=== PATIENT | male | born 1965 | race Caucasian/White ===

== ENCOUNTER → 2017-05-28 14:56 | Outpatient (CLI) | payer OTHER, SELFPAY ==
[2017-05-28 17:49] LABS: T4 Free Direct 0.83 ng/dL (0.76-1.46); Thyroid Stim Hormone (TSH) 0.34 uIU/mL (0.358-3.74)
== END ==
PROVIDERS: Family Provider Family Medicine; PCP Family Medicine; Visit Provider Family Medicine
DX: R94.6 Abnormal results of thyroid function studies (principal)
CPT/HCPCS: 36415; 84439; 84443

== ENCOUNTER → 2017-12-03 08:37 | Outpatient (CLI) | payer OTHER, SELFPAY ==
[2017-12-03 12:05] LABS: Absolute Lymphocyte Count 2.25 X10^3/ul (0.83-4.51); Absolute Neutrophil Count 8.5 X10^3/uL (2.0-7.7); Basophil# 0.04 X10^3/uL; Basophil% 0.3 % (0-1); Eosinophil# 0.49 X10^3/uL; Hematocrit 47.1 % (40-54); Hemoglobin 14.9 g/dl (13.0-16.5); Lymphocyte # 2.25 X10^3/ul (4.0); Lymphocyte % 18.5 % (19-41); Mean Corp Hgb Conc 31.6 g/gl (32-36); Mean Corpuscular Hgb 27.9 pg (27.0-32.0); Mean Corpuscular Volume 88.2 fL (80-94); Mean Platelet Vol. 10.5 fl (6.2-12.0); Monocyte# 0.84 X10^3/uL; Monocyte% 6.9 % (0-10); Neutrophil # 8.49 X10^3/uL (2.7-7.7); Neutrophil % 70.1 % (47-70); Platelet Count 325 K/mm3 (150-450); RBC Distribution Width CV 13.9 % (11.6-14.6); RBC Distribution Width SD 44.4 fl (35.1-43.9); Red Blood Count 5.34 M/mm3 (4.6-6.2); White Blood Count 12.1 K/mm3 (4.4-11.0)
[2017-12-03 12:07] LABS: POSITIVE COUNT NO; POSITIVE DIFFERENTIAL NO; POSITIVE MORPHOLOGY NO
[2017-12-03 12:15] LABS: Anion Gap 9 (5-15); BUN 13 mg/dL (7-18); BUN/Creat Ratio 10.1 RATIO (10-20); Calcium,Total 9.2 mg/dL (8.5-10.1); Chloride 107 mmol/L (98-107); Creatinine, Serum 1.29 mg/dL (0.70-1.30); EST Glomerular Filtration Rate 62 mL/min (>60); Est Glom Filt Rate - Afr Amer 75 mL/min (>60); Glucose 92 mg/dL (74-106); Potassium 4.6 mmol/L (3.5-5.1); Sodium Level 138 mmol/L (136-145); T4 Free Direct 0.82 ng/dL (0.76-1.46); Thyroid Stim Hormone (TSH) 0.47 uIU/mL (0.358-3.74)
== END ==
PROVIDERS: Family Provider Family Medicine; PCP Family Medicine; Visit Provider Family Medicine
DX: I10 Essential (primary) hypertension (principal); R94.6 Abnormal results of thyroid function studies
CPT/HCPCS: 36415; 80048; 84439; 84443; 85025

== ENCOUNTER → 2018-06-03 | Outpatient (CLI) | payer OTHER, SELFPAY ==
[2018-06-03 13:04] LABS: Anion Gap 5 (5-15); BUN 13 mg/dL (7-18); BUN/Creat Ratio 9.8 RATIO (10-20); Calcium,Total 9.5 mg/dL (8.5-10.1); Chloride 107 mmol/L (98-107); Creatinine, Serum 1.33 mg/dL (0.70-1.30); EST Glomerular Filtration Rate 60 mL/min (>60); Est Glom Filt Rate - Afr Amer 72 mL/min (>60); Glucose 94 mg/dL (74-106); Potassium 4.4 mmol/L (3.5-5.1); Sodium Level 135 mmol/L (136-145); T4 Free Direct 0.82 ng/dL (0.76-1.46); Thyroid Stim Hormone (TSH) 0.35 uIU/mL (0.358-3.74)
== END | disposition home or self-care (01) ==
LOC: BFHLAB 08:37
PROVIDERS: Family Provider Family Medicine; PCP Family Medicine; Visit Provider Family Medicine
DX: I10 Essential (primary) hypertension (principal); R94.6 Abnormal results of thyroid function studies
CPT/HCPCS: 36415; 80048; 84439; 84443

== ENCOUNTER → 2018-11-25 | Outpatient (CLI) | payer OTHER, SELFPAY ==
[2018-11-25 12:27] LABS: Absolute Lymphocyte Count 1.84 X10^3/uL (0.83-4.51); Absolute Neutrophil Count 9.6 X10^3/uL (2.0-7.7); Basophil# 0.07 X10^3/uL; Basophil% 0.5 % (0-1); Eosinophil# 0.31 X10^3/uL; Eosinophils% 2.4 % (0-5); Hematocrit 48.7 % (40-54); Hemoglobin 15.2 g/dL (13.0-16.5); Lymphocyte # 1.84 X10^3/ul (4.0); Lymphocyte % 14.4 % (19-41); Mean Corp Hgb Conc 31.2 g/dL (32-36); Mean Corpuscular Hgb 27.9 pg (27.0-32.0); Mean Corpuscular Volume 89.5 fL (80-94); Mean Platelet Vol. 10.6 fl (6.2-12.0); Monocyte# 0.84 X10^3/uL; Monocyte% 6.6 % (0-10); NRBC Flagged by Analyzer 0 % (0-5); Neutrophil # 9.64 X10^3/uL (2.7-7.7); Neutrophil % 75.6 % (47-70); Platelet Count 316 K/mm3 (150-450); RBC Distribution Width CV 13.4 % (11.6-14.6); RBC Distribution Width SD 44.2 fl (35.1-43.9); Red Blood Count 5.44 M/mm3 (4.6-6.2); White Blood Count 12.8 K/mm3 (4.4-11.0)
[2018-11-25 13:02] LABS: Hemoglobin A1c 5.6 % (4.2-6.3)
[2018-11-25 13:08] LABS: BUN 14 mg/dL (7-18); Creatinine, Serum 1.31 mg/dL (0.70-1.30); Glucose 95 mg/dL (74-106)
[2018-11-25 13:09] LABS: ALB/GLOB Ratio 0.9 RATIO (0.9-2.4); AST(SGOT) 23 U/L (15-37); Alanine Aminotransfer ALT/SGPT 46 U/L (16-61); Albumin, Serum 3.7 g/dL (3.2-5.0); Alkaline Phosphatase 73 U/L (45-117); Anion Gap 6 (5-15); BUN/Creat Ratio 10.7 RATIO (10-20); Calcium,Total 9.3 mg/dL (8.5-10.1); Chloride 106 mmol/L (98-107); EST Glomerular Filtration Rate 61 mL/min (>60); Est Glom Filt Rate - Afr Amer 74 mL/min (>60); Globulin 4.2 g/dL (2.2-4.2); Potassium 4.6 mmol/L (3.5-5.1); Protein, Total 7.9 g/dL (6.4-8.2); Sodium Level 136 mmol/L (136-145); Thyroid Stim Hormone (TSH) 0.29 uIU/mL (0.358-3.74)
== END | disposition home or self-care (01) ==
LOC: BFHLAB 08:36
PROVIDERS: Family Provider Family Medicine; PCP Family Medicine; Visit Provider Family Medicine
DX: R94.6 Abnormal results of thyroid function studies (principal); I10 Essential (primary) hypertension; E78.5 Hyperlipidemia, unspecified; R73.01 Impaired fasting glucose
CPT/HCPCS: 36415; 80053; 83036; 84439; 84443; 85025

== ENCOUNTER → 2018-12-31 | Outpatient (CLI) | payer OTHER, SELFPAY ==
[2017-02-23 07:29] VITALS: BMI 36.3
--- NOTE | 2018-12-31 08:09 | US_ITS ---
STUDY: THYROID ULTRASOUND REASON FOR EXAM: Male, 53 years old. Follow up for thyroid nodules. TECHNIQUE: Ultrasound evaluation of the thyroid was performed with real-time and static sánchez-scale imaging. COMPARISON: None. FINDINGS: RIGHT LOBE: The right lobe of the thyroid gland is enlarged and measures 5.4 cm x 2.8 cm x 2.9 cm. There is a heterogeneous echotexture. There are no demonstrated solid, cystic or complex lesions. LEFT LOBE: The left lobe of the thyroid gland is enlarged and measures 5.4 cm x 2.3 centimeters x 2.8 cm. There is a heterogeneous echotexture. There is an 8mm by 8mm by 5 mm hypoechoic solid nodule in the lower pole of the left lobe. ISTHMUS: The isthmus measures 9.0 mm. The regional lymph nodes are normal. US/Thyroid IMPRESSION: Thyromegaly. 8mm by 8mm by 5 mm hypoechoic solid nodule in the lower pole of the left lobe of the thyroid. Electronically Signed: Kvng Hardy, at 14:42 EST , Service support ,
== END | disposition home or self-care (01) ==
PROVIDERS: Family Provider Family Medicine; PCP Family Medicine; Referring Provider Family Medicine; Visit Provider Family Medicine
DX: E04.1 Nontoxic single thyroid nodule (principal)
CPT/HCPCS: 76536

== ENCOUNTER → 2019-11-05 10:36 | Outpatient (CLI) | payer OTHER, SELFPAY ==
[2017-02-23 07:29] VITALS: BMI 36.3
[2019-11-05 12:42] LABS: Absolute Lymphocyte Count 1.69 X10^3/uL (0.83-4.51); Absolute Neutrophil Count 9.7 X10^3/uL (2.0-7.7); Basophil# 0.06 X10^3/uL; Basophil% 0.5 % (0-1); Eosinophil# 0.17 X10^3/uL; Eosinophils% 1.4 % (0-5); Hematocrit 46.8 % (40-54); Hemoglobin 14.8 g/dL (13.0-16.5); Lymphocyte # 1.69 X10^3/ul (4.0); Lymphocyte % 13.5 % (19-41); Mean Corp Hgb Conc 31.6 g/dL (32-36); Mean Corpuscular Hgb 28.2 pg (27.0-32.0); Mean Corpuscular Volume 89.3 fL (80-94); Mean Platelet Vol. 11.2 fl (6.2-12.0); Monocyte# 0.82 X10^3/uL; Monocyte% 6.5 % (0-10); NRBC Flagged by Analyzer 0 % (0-5); Neutrophil # 9.72 X10^3/uL (2.7-7.7); Neutrophil % 77.6 % (47-70); Platelet Count 285 K/mm3 (150-450); RBC Distribution Width CV 13.6 % (11.6-14.6); RBC Distribution Width SD 44.2 fl (35.1-43.9); Red Blood Count 5.24 M/mm3 (4.6-6.2); White Blood Count 12.5 K/mm3 (4.4-11.0)
[2019-11-05 12:54] LABS: ALB/GLOB Ratio 0.9 RATIO (0.9-2.4); AST(SGOT) 20 U/L (15-37); Alanine Aminotransfer ALT/SGPT 38 U/L (16-61); Albumin, Serum 3.7 g/dL (3.2-5.0); Alkaline Phosphatase 69 U/L (45-117); Anion Gap 6 (5-15); BUN 13 mg/dL (7-18); BUN/Creat Ratio 11.1 RATIO (10-20); Calcium,Total 9.3 mg/dL (8.5-10.1); Chloride 106 mmol/L (98-107); Creatinine, Serum 1.17 mg/dL (0.70-1.30); EST Glomerular Filtration Rate 69 mL/min (>60); Est Glom Filt Rate - Afr Amer 83 mL/min (>60); Globulin 4.1 g/dL (2.2-4.2); Glucose 93 mg/dL (74-106); Potassium 4.1 mmol/L (3.5-5.1); Protein, Total 7.8 g/dL (6.4-8.2); Sodium Level 136 mmol/L (136-145); T4 Free Direct 0.95 ng/dL (0.76-1.46); Thyroid Stim Hormone (TSH) 0.29 uIU/mL (0.358-3.74)
== END ==
PROVIDERS: Family Provider Family Medicine; PCP Family Medicine; Visit Provider Family Medicine
DX: R94.6 Abnormal results of thyroid function studies (principal); D72.829 Elevated white blood cell count, unspecified; I10 Essential (primary) hypertension; E78.5 Hyperlipidemia, unspecified
CPT/HCPCS: 36415; 80053; 84439; 84443; 85025

== ENCOUNTER → 2019-11-10 09:50 | Outpatient (CLI) | payer OTHER, SELFPAY ==
--- NOTE | 2019-11-10 09:53 | US_ITS ---
HISTORY: NODULE COMPARISON: 12/31/2018 TECHNIQUE: Grayscale and color Doppler sonography of the thyroid gland. FINDINGS: RIGHT LOBE: 5.9 x 2.7 x 2.8 cm LEFT LOBE: 5.8 x 2.5 x 2.2 cm ISTHMUS: 8 mm Heterogeneous echogenicity. Normal vascularity. Left thyroid lobe nodule measuring 8 x 5 x 7 mm, smoothly marginated without calcification, and moderate mental. It is heterogeneous with some hypoechoic and isoechoic components. TIRADS 4. Stable compared to 2019. 7 x 8 x 6 mm left thyroid lobe cyst. US/Thyroid IMPRESSION: 1. Enlarged, heterogeneous thyroid. 2. Stable small left thyroid lobe nodule. TIRADS 4. Continued follow-up recommended, with suggested follow-up intervals of 1 year, 2 years and 4 years. at 0236 Reported and signed by: Nadja Lyles MD Electronically Signed: Nadja Lyles MD at 2:36 EDT Tel , Service support ,
== END ==
PROVIDERS: PCP Family Medicine; Referring Provider Family Medicine; Visit Provider Family Medicine
DX: E04.1 Nontoxic single thyroid nodule (principal)
CPT/HCPCS: 76536

== ENCOUNTER 2020-03-05 06:12 | Day surgery (SDC) | payer OTHER, SELFPAY ==
[2020-03-05] VITALS (7 sets, daily range): BP systolic 92–126; BP diastolic 49–74; PULSE 70–85; RESP 14–16; TEMP 36.2–36.8; O2SAT 93–96; BMI 36.5
[2020-03-05] MEDS: Lactated Ringers 1,000 ML 100 ML IV (06:49)
--- NOTE | 2020-03-05 06:59 | HP.PCM_ITS ---
History of Present Illness Date of Admission: 03/05/20 The patient is a 54 year old M here for surveillance colonoscopy. The patient has last colonoscopy in 2017 and a large adenomatous polyp was encountered. Patient was recommended to come back in 3 years. He has no abdominal pain or blood in stool. He has no family history of colon cancer. Past Medical/Surgical History - Planned Operation Planned Operative Procedure/s: COLONOSCOPY Date of Operative Procedure: 03/05/20 Permit Signed: No S.O.S: No Is This Patient Having a Total Joint: No - Previous Hospitalizations/Surgeries HX Hospitalizations: No HX of Surgeries: Colonoscopy Any Problems With Anesthesia: No You/Your Family Experience Fever (Hyperthermia) With Anes: No Cholinesterase deficiency: No - Cardiovascular Hx Chest Pain within Last 2 months: No Hx of Irregular Heartbeat and/or Afib: No Hx Heart Attack: No Hx Congestive Heart Failure: No Hx Rheumatic Fever: No Hx Hypertension: Yes - on meds Hx Internal Defibrillator: No Hx Pacemaker: No Hx Cardiac Catheterization: No Hx Cardiac Surgery/Stents/Etc.: No Hx Stress Test: No HX Edema: No Hx Pain in Legs when Walking/Leg Cramps: No - Respiratory Chronic Cough: No HX of Shortness of Breath: No Hoarseness: No Hx Chronic Obstructive Pulmonary Disease (COPD): No Hx Asthma: No Hx Emphysema: No Hx Sleep Apnea: No CPAP: No Hx Oxygen Use at Home: No Hx Respiratory Tract Infection/Cold (presently): No Do You Snore Loudly (louder than talking or can be heard): No Do You Often Feel Tired/ Fatigued/ Sleepy Dring Daytime?: No Has Anyone Observed You Stop Breathing During Sleep?: No Result (for STOP score): Negative Hx Smoking: No Smoking Status: Former smoker - Gastrointestinal Hx Gastroesophageal Reflux: No Hx Gastrointestinal Disorders: No Hx Gastrointestinal Bleed: No Hx Ulcer: No Hx Hiatal Hernia: No Difficulty Chewing/Swallowing: No Recent Onset of Swallowing Problems: No Special diet followed at home: No Hx Unplanned Weight Loss of 20#: No HX Unplanned Weight Gain of 20#: No - Neurological Hx Seizures: No HX Syncope/Blackout Spells/Unconsciousness: No Hx CVA/Stroke: No Hx Transient Ischemic Attacks (TIA): No Hx Multiple Sclerosis: No Hx Parkinson's Disease: No Hx Head/Neck Injury: No Hx Headaches: No Hx Back Injury/Pain: No Recent Onset of Speech Difficulty: No Restless Legs: No Does patient have nerve stimulator: No Patient instructed to have device shut off: No Rep notified?: No - Blood Disorder Hx Leukemia: No Bleeding Tendencies: No Hx Deep Vein Thrombosis: No Hx High Cholesterol: Yes - on meds Blood Transmitted Disease: No Hx Hepatitis: No Hx Cirrhosis: No Hx Anemia: No Hx Blood Disorders: No - Genitourinary Hx Renal Disease: No - Musculoskeletal Hx Arthritis: No Hx Rheumatoid Arthritis: No Hx Gout: No Recent Onset of an Orthopedic Problem: No - Endocrine Hx Diabetes: No Thyroid Disease: No Hx Steroid Therapy: No - Psycho/Social Hx Substance Use: No Hx Alcohol Use: No Hx Anxiety: No Hx Depression: No Mental Illness: No Hx Dementia: No - Miscellaneous Hx Cancer: No Recent Exposure to Contagious Disease: No Hx of C-Diff: No Any Loose Teeth: No - upper denture Allergies No Known Allergies Allergy (Verified 02/24/20 13:43) - Discharge Is Pt Admitted From a Usp, or a Senior Care: No After D/C, Where Do you Plan to Go: Return Home - Physical Exam Vitals/I&O's: Vital Signs Temp Pulse Resp BP Pulse Ox 98.3 F 85 14 126/74 H 95 03/05/20 06:35 03/05/20 06:35 03/05/20 06:35 03/05/20 06:35 03/05/20 06:35 Oxygen Delivery Method Room Air Weight: 240 lb 4.862 oz Body Mass Index (BMI) 36.5 General: Alert, Oriented x3 Neck: No JVD Lungs: Normal air movement Cardiovascular: Regular rate, Regular Rhythm Abdomen: Soft, Non Tender, Non-Distended Current Medications Lactated Ringer's () 1,000 mls @ 100 mls/hr IV .Q10H LAINEY Last Admin: 03/05/20 06:49 Dose: 100 mls/hr Documented by: Assessment/Plan All Active Problems (Last Reviewed 01/29/17 @ 09:[address] Celestine Lyons MD) Tubulovillous adenoma of large intestine (Acute) Screen for colon cancer (Acute) 54-year-old male with history of adenomatous polyps I explained endoscopy in detail to the patient. I explained the risks including but not limited to stroke or heart attack with anesthesia, perforation of the GI tract, bleeding, infection. I explained that any of these could necessitate further emergency surgery. The patient understands and all questions were answered sufficiently. The patient wishes to proceed with procedure. We discussed the current risks associated with COVID-19. While it is understood that there is a community spread of COVID-19, the risk of andrae COVID-19 while at [facility] ([facility]) is very low; however, the risk cannot be completely mitigated because of the community spread of the disease. We discussed in detail the risk of exposure to and/or potential harm posed by the COVID-19 virus with having a surgery/procedure at this time versus the risk of delaying the surgery/procedure. It is not possible to know either the risk of delaying the surgery or procedure or chance of getting an infection with perfect accuracy, but a joint decision was made to proceed at this time with the scheduled surgery/procedure as indicated on the consent form. Patient was notified that we will need to comply with any screening or testing [facility] wishes to perform or that surgery may be delayed for any positive results. Celestine Lyons MD Pager: [facility] [address] [place] [address], [address] [place] [address] Office: Surgery Risks - Colonoscopy Risks Include but are not Limited To: Risks include but are not limited to: Bleeding, perforation requiring further surgery, inability to complete colonoscopy requiring barium enema.
--- NOTE | 2020-03-05 07:30 | COLBX_PTH ---
PATIENT: JOCELYNE GONSALES LOC: EN U#:[id number] AGE/SX: 54/M ROOM: RE03/05/[address]: Dr. Celestine Lyons MD : 1965 BED: DIS: 03/05/2020 SPEC #: [id number] RECD: 03/05/20 11:33 STATUS: JEREMY HUBERT #: [id number] VERONICA: 03/05/20 07:[address]: Celestine Lyons DEPT: SURGICAL PATHOLOGY RECD BY: Jade Joshua ENTERED: 03/05/20 12:23 SP TYPE: COLON BX OTHR DR: Dr. Darryl Ramirez MD Tissues: Descending colon Procedures: Surgery Specimen Level IV HEADER OPERATION: Colonoscopy - open access (MAC) PRE-OP DIAGNOSIS: Screening TISSUE SUBMITTED: Descending colon polyp MICROSCOPIC DIAGNOSIS Descending colon polyp, biopsy: Tubular adenoma. AM:teagan 03/08/2020 MICROSCOPIC DESCRIPTION Slides are reviewed. GROSS DESCRIPTION Received in fixative is one container labeled with the patient's name and designated descending colon polyp. The specimen consists of one irregular fragment of light carmona soft tissue that measures 0.6 x 0.5 x 0.1 cm. The specimen is totally submitted in one cassette. / AM:teagan 03/05/2020 TC:5 CPT: 94309
--- NOTE | 2020-03-05 07:54 | OP.COLON_ITS ---
Patient Name: Saqib Sherman Procedure Date: 03/05/2020 7:25 AM Date of : 1965 Age: 54 Procedure: Colonoscopy Indications: High risk colon cancer surveillance: Personal history of adenoma (10 mm or greater in size) Providers: Celestine Lyons MD Referring MD: Celestine Lyons MD Medicines: Monitored Anesthesia Care Patient Profile: This is a 54 year old male. Refer to note in patient chart for documentation of history and physical. Last Colonoscopy: 3 years ago. Complications: No immediate complications. Procedure: Pre-Anesthesia Assessment: - Prior to the procedure, a History and Physical was performed, and patient medications and allergies were reviewed. The patient's tolerance of previous anesthesia was also reviewed. The risks and benefits of the procedure and the sedation options and risks were discussed with the patient. All questions were answered, and informed consent was obtained. Prior Anticoagulants: The patient has taken no previous anticoagulant or antiplatelet agents. After reviewing the risks and benefits, the patient was deemed in satisfactory condition to undergo the procedure. After I obtained informed consent, the scope was passed under direct vision. Throughout the procedure, the patient's blood pressure, pulse, and oxygen saturations were monitored continuously. The Colonoscope was introduced through the anus and advanced to the cecum, identified by appendiceal orifice and ileocecal valve. The colonoscopy was performed without difficulty. The patient tolerated the procedure well. The quality of the bowel preparation was good. Scope In: 7:35:07 AM Scope Withdrawal Time 0 hours 6 minutes 14 seconds Scope Out: 7:43:22 AM Total Procedure Duration Time 0 hours 8 minutes 15 seconds Findings: A polyp was found in the distal descending colon. The polyp was removed with a hot snare. Resection and retrieval were complete. The exam was otherwise without abnormality on direct and retroflexion views. Impression: - One polyp in the distal descending colon, removed with a hot snare. Resected and retrieved. - The examination was otherwise normal on direct and retroflexion views. Recommendation: - Discharge patient to home. - Resume previous diet. - Continue present medications. - Await pathology results. - Repeat colonoscopy in 5 years for surveillance. Procedure Code(s): --- Professional --- 02446, Colonoscopy, flexible; with removal of tumor(s), polyp(s), or other lesion(s) by snare technique Diagnosis Code(s): --- Professional --- Z86.010, Personal history of colonic polyps D12.4, Benign neoplasm of descending colon CPT copyright 2017 [employer]. All rights reserved. The codes documented in this report are preliminary and upon blood tester review may be revised to meet current compliance requirements. Celestine Lyons MD 03/05/2020 7:54:15 AM This report has been signed electronically. Number of Addenda: 0 Note Initiated On: 03/05/2020 7:25 AM
--- NOTE | 2020-03-05 07:55 | OP.CCLET_ITS ---
03/05/2020 Darryl Ramirez Re : Colonoscopy procedure for Saqib Sherman Dear James This procedure was performed on Thursday, March 05, 2020. My impressions and recommendations are as follows: Impressions : - One polyp in the distal descending colon, removed with a hot snare. Resected and retrieved. - The examination was otherwise normal on direct and retroflexion views. Recommendations : - Discharge patient to home. - Resume previous diet. - Continue present medications. - Await pathology results. - Repeat colonoscopy in 5 years for surveillance. My findings are described in the full procedure note, which is enclosed. If I can be of further assistance, please feel free to contact me at Doctor phone number(s): , Work: . Sincerely, Celestine Lyons MD 03/05/2020 7:54:15 AM This report has been signed electronically.
== END 2020-03-05 08:25 | disposition home or self-care (01) ==
LOC: EN 06:13 → AC 06:14
PROVIDERS: PCP Family Medicine; Referring Provider Surgery; Visit Provider Surgery
PROC: 0DJD8ZZ Inspection of Lower Intestinal Tract, Via Natural or Artificial Opening Endoscopic (ICD-10-PCS; CPT 45378; principal; 2020-03-05 07:25)
DX: Z12.11 Encounter for screening for malignant neoplasm of colon (principal); Z20.828 Contact with and (suspected) exposure to other viral communicable diseases; I10 Essential (primary) hypertension; D12.4 Benign neoplasm of descending colon; Z86.010 Personal history of colon polyps
CPT/HCPCS: 45385; 87426; 88305; C9803; J7120; J2405

== ENCOUNTER → 2020-11-03 07:17 | Outpatient (CLI) | payer OTHER, SELFPAY ==
--- NOTE | 2020-11-03 07:24 | US_ITS ---
STUDY: THYROID ULTRASOUND REASON FOR EXAM: Male, 55 years old. F/U NODULES TECHNIQUE: Ultrasound evaluation of the thyroid was performed with real-time and static sánchez-scale imaging. COMPARISON: 11/10/2019 FINDINGS: RIGHT LOBE: The right lobe of the thyroid gland measures 6.2 x 3.3 x 2.8 cm. There is a heterogeneous echotexture. There are no demonstrated solid, cystic or complex lesions. LEFT LOBE: The left lobe of the thyroid gland measures 6.0 x 2.8 x 2.2 cm. There is a heterogeneous echotexture. 0.8 x 1.0 x 0.6 cm nodule solid nodule with regular margins. 0.9 x 0.6 x 0.5 cm nodule predominantly cystic nodule with regular margins. 0.7 x 0.6 x 0.5 cm nodule mixed cystic and solid nodule with regular margins. 0.5 x 0.5 x 0.4 cm nodule predominantly cystic nodule with regular margins. Symmetric right and left lobe DOPPLER flow. ISTHMUS: The isthmus measures 6 mm. US/Thyroid IMPRESSION: Several left-sided nodules, largest measuring up to 1 cm in size, not significantly changed compared to 11/10/2019. Electronically Signed: Kennedy Cordon MD at 22:59 EDT Tel , Service support ,
== END ==
PROVIDERS: PCP Family Medicine; Referring Provider Family Medicine; Visit Provider Family Medicine
DX: E04.1 Nontoxic single thyroid nodule (principal)
CPT/HCPCS: 76536

== ENCOUNTER 2021-05-23 07:15 | Outpatient (CLI) | payer OTHER, SELFPAY ==
--- NOTE | 2021-05-23 07:26 | US_ITS ---
STUDY: THYROID ULTRASOUND REASON FOR EXAM: Male, 55 years old. Thyroid nodule TECHNIQUE: Ultrasound evaluation of the thyroid was performed with real-time and static sánchez-scale imaging. COMPARISON: 11/03/2020 and 11/10/2019 and 12/31/2018 FINDINGS: RIGHT LOBE: The right lobe of the thyroid gland measures 6.2 x 3.1 x 3.6 cm. There is a heterogeneous echotexture. There are no demonstrated solid, cystic or complex lesions. LEFT LOBE: The left lobe of the thyroid gland measures 6 x 2.9 x 3.0 cm. There is a homogeneous echotexture. There are multiple nodules in the left thyroid lobe the largest 2 measure respectively: Nodule #1 measures 8 x 11 x 7 mm .Ti-RADS category 2 benign lesion. Nodule #2 measures 8 x 9 x 6 mm Ti-RADS category 2 benign lesion. . ISTHMUS: The isthmus measures 9 mm . The regional lymph nodes are normal in size. US/Thyroid IMPRESSION: Enlarged heterogeneous thyroid gland consistent with chronic thyroiditis. Benign nodules in the left thyroid lobe have not significantly changed since the previous study. Electronically Signed: Anshu Benton MD at 4:26 EDT ,
== END 2021-05-23 23:59 | disposition home or self-care (01) ==
PROVIDERS: PCP Family Medicine; Referring Provider Family Medicine; Visit Provider Family Medicine
DX: E04.1 Nontoxic single thyroid nodule (principal)
CPT/HCPCS: 76536

== ENCOUNTER → 2022-10-02 | Outpatient (CLI) | payer OTHER, SELFPAY ==
[2022-10-02 12:14] LABS: Absolute Lymphocyte Count 1.94 X10^3/uL (0.83-4.51); Absolute Neutrophil Count 8.2 X10^3/uL (2.0-7.7); Basophil# 0.08 X10^3/uL; Basophil% 0.7 % (0-1); Eosinophil# 0.28 X10^3/uL; Eosinophils% 2.5 % (0-5); Hematocrit 48.5 % (40-54); Lymphocyte # 1.94 X10^3/ul (0.83-4.51); Lymphocyte % 17.1 % (19-41); Mean Corp Hgb Conc 30.9 g/dL (32-36); Mean Corpuscular Hgb 28.4 pg (27.0-32.0); Mean Corpuscular Volume 91.7 fL (80-94); Mean Platelet Vol. 10.5 fl (6.2-12.0); Monocyte# 0.83 X10^3/uL; Monocyte% 7.3 % (0-10); NRBC Flagged by Analyzer 0 % (0-5); Neutrophil # 8.18 X10^3/uL (2.7-7.7); Platelet Count 349 K/mm3 (150-450); RBC Distribution Width CV 13.7 % (11.6-14.6); RBC Distribution Width SD 46.5 fl (35.1-43.9); Red Blood Count 5.29 M/mm3 (4.6-6.2); White Blood Count 11.4 K/mm3 (4.4-11.0)
[2022-10-02 12:18] LABS: Color, Urine Yellow (Yellow); Glucose, Dipstick Normal (Normal); Ketone-Dipstick Negative (Negative); Leukocyte Esterase-Dipstick Negative /ul (Negative); Nitrite-Dipstick Negative (Negative); Occult Blood-Urine 10 /ul (Negative); Protein-Dipstick 15 mg/dl (Negative); Urine Bilirubin Dipstick Negative (Negative); Urine Clarity Clear (Clear); Urine Urobilinogen Normal (Normal)
[2022-10-02 13:02] LABS: ALB/GLOB Ratio 0.9 RATIO (0.9-2.4); AST(SGOT) 19 U/L (15-37); Alanine Aminotransfer ALT/SGPT 37 U/L (16-61); Albumin, Serum 3.5 g/dL (3.2-5.0); Alkaline Phosphatase 68 U/L (45-117); Anion Gap 4 (5-15); BUN 12 mg/dL (7-18); BUN/Creat Ratio 10.3 RATIO (10-20); Calcium,Total 9.4 mg/dL (8.5-10.1); Chloride 108 mmol/L (98-107); Cholesterol 164 mg/dL (200); Creatinine, Serum 1.17 mg/dL (0.70-1.30); EST Glomerular Filtration Rate 68 mL/min (>60); Est Glom Filt Rate - Afr Amer 83 mL/min (>60); Globulin 4.1 g/dL (2.2-4.2); Glucose 102 mg/dL (74-106); High Density Lipoprotein 40 mg/dL; Potassium 4.3 mmol/L (3.5-5.1); Protein, Total 7.6 g/dL (6.4-8.2); Sodium Level 138 mmol/L (136-145); T4 Free Direct 0.94 ng/dL (0.76-1.46); Triglycerides 118 mg/dL; Very Low Density Lipoprotein 24 mg/dL (5-40)
[2022-10-02 13:04] LABS: Hemoglobin A1c 5.7 % (3.8-5.6)
== END | disposition home or self-care (01) ==
LOC: BFHLAB 09:25
PROVIDERS: PCP Family Medicine; Referring Provider Family Medicine; Visit Provider Family Medicine
DX: Z00.00 Encounter for general adult medical examination without abnormal findings (principal); R73.01 Impaired fasting glucose; E06.9 Thyroiditis, unspecified
CPT/HCPCS: 36415; 80053; 80061; 81002; 83036; 84439; 84443; 85025

== ENCOUNTER → 2024-09-19 | Outpatient (CLI) | payer OTHER, SELFPAY ==
[2024-09-19 12:36] LABS: Hematocrit 46.1 % (40-54); Hemoglobin 14.6 g/dL (13.0-16.5); Immature Granulocytes Count 0.040 X10^3/uL (0.0-0.0); Mean Corp Hgb Conc 31.7 g/dL (32-36); Mean Corpuscular Volume 88.1 fL (80-94); Mean Platelet Vol. 10.7 fl (6.2-12.0); NRBC Flagged by Analyzer 0 % (0-5); Platelet Count 320 K/mm3 (150-450); RBC Distribution Width CV 14.0 % (11.6-14.6); RBC Distribution Width SD 44.5 fl (35.1-43.9); Red Blood Count 5.23 M/mm3 (4.6-6.2); White Blood Count 9.3 K/mm3 (4.4-11.0)
[2024-09-19 13:31] LABS: AST(SGOT) 22 U/L (<=37); Alanine Aminotransfer ALT/SGPT 31 U/L (<=46); Albumin, Serum 4.0 g/dL (3.5-5.0); Alkaline Phosphatase 71 U/L (40-129); Anion Gap 12 (5-15); BUN 12 mg/dL (4-19); BUN/Creat Ratio 9.8 RATIO (10-20); Calcium,Total 9.7 mg/dL (7.6-11.0); Carbon Dioxide 21.6 mmol/L (21.0-32.0); Chloride 104 mmol/L (98-108); Cholesterol 170 mg/dL (<=200); Globulin 3.3 g/dL (2.2-4.2); Glucose 102 mg/dL (70-99); Low Density Lipoprotein Calc. 109 mg/dL; Potassium 4.2 mmol/L (3.3-5.1); Triglycerides 96 mg/dL; Very Low Density Lipoprotein 19 mg/dL (5-40); cholesterol:hdl ratio screen 4.06
[2024-09-19 13:58] LABS: PSA,Total - Annual Screen 2.84 ng/mL (0.02-4.00)
== END | disposition home or self-care (01) ==
PROVIDERS: PCP Family Medicine; Visit Provider Family Medicine
DX: Z00.00 Encounter for general adult medical examination without abnormal findings (principal); Z12.5 Encounter for screening for malignant neoplasm of prostate; R73.01 Impaired fasting glucose; R94.6 Abnormal results of thyroid function studies
CPT/HCPCS: 36415; 80053; 80061; 83036; 84153; 84439; 84443; 85025; G0103

== ENCOUNTER → 2024-10-02 | Outpatient (CLI) | payer OTHER, SELFPAY ==
--- NOTE | 2024-10-02 12:02 | US_ITS ---
PROCEDURE: THYROID 10/02/2024 REASON FOR EXAM: THYROMEGALY NODULES TECHNIQUE: THYROID COMPARISON: May 15, 2021, November 03, 2020 FINDINGS: Right thyroid lobe size: 5.6 x 2.4 x 3.1 cm Left thyroid lobe size: 6.2 x 2.8 x 2.9 cm Isthmus: 0.7 cm Background parenchymal echotexture is heterogeneous. Nodules: 1. Lobe: Left, Location: Midpole, Size: 0.9 cm, Stability: Stable Composition: Solid or almost completely solid (+2) Echogenicity: Hyper to Isoechoic (+1) Margin: Smooth (+0) Shape: Wider than tall (+0) Echogenic Foci: None (+0) TI-RADS: 3 2. Lobe: Left, Location: Posterior lower pole, Size: 1.5 cm, Stability: Unchanged when measured similarly (on prior image 53 and image 49 of November 03 exam). Composition: Solid or almost completely solid (+2) Echogenicity: Hypoechoic (+2) Margin: Ill-defined (+0) Shape: Wider than tall (+0) Echogenic Foci: None (+0) TI-RADS: 4 Incidental note is made of a left midpole colloid cyst measuring 5 mm. Benign. US/Thyroid IMPRESSION: 1. Thyroid enlargement. 2. Benign colloid cyst. 3. Solid nodules as above are stable. TR4: Moderately Suspicious: FNA if = 1. 5 cm; Follow if = 1 cm at 1, 2, 3, and 5 y. Consider sampling the 15 mm left thyroid nodule. Reading Location: [id number]
== END | disposition home or self-care (01) ==
PROVIDERS: PCP Family Medicine; Referring Provider Family Medicine; Visit Provider Family Medicine
DX: E04.9 Nontoxic goiter, unspecified (principal)
CPT/HCPCS: 76536

== ENCOUNTER 2024-11-05 12:44 | Outpatient (CLI) | payer OTHER, SELFPAY ==
--- NOTE | 2024-11-05 12:48 | US_ITS ---
PROCEDURE: FNA 1ST BIOPSY W/ US 11/05/2024 REASON FOR EXAM: THYROID NODULE Ultrasound-guided biopsy of a left thyroid nodule performed by the surgeon Dr. Osborne TECHNIQUE: Procedure Code: [id number] Modality: US Procedure: FNA 1ST BIOPSY W/ US COMPARISON: Prior sonogram dated October 07, 2024. FINDINGS: Under direct sonographic guidance, the surgeon performed 5 aspiration biopsy of a 1.7 cm 1.6 cm x 0.8 cm hypoechoic nodule in the right lobe of the thyroid. US/FNA 1st Biopsy w/ US IMPRESSION: Ultrasound-guided thyroid biopsy of a 1.7 cm 1.6 cm 0.8 cm hypoechoic solid nod ule in the right lobe of the thyroid. Reading Location: [id number]
--- NOTE | 2024-11-05 13:30 | CYSPIN_PTH ---
PATIENT: JOCELYNE GONSALES LOC: [facility]#:[id number] AGE/SX: 59/M ROOM: RE11/05/[address]: Dr. Adán Osborne MD : 1965 BED: DIS: 11/05/2024 SPEC #: [id number] RECD: 11/05/24 13:55 STATUS: JEREMY REBelen #: [id number] VERONICA: 11/05/24 13:[address]: Adán Osborne DEPT: CYTOLOGY RECD BY: Scottie Skelton ENTERED: 11/05/24 14:50 SP TYPE: CYSPIN FL OTHR DR: Dr. Parvez Collins DO Tissues: A - Thyroid gland, NOS Procedures: Pap Stain (control) Special Stain Group II Diff Quik Stain (control) Cytospin Fluid Cytology Other HEADER OPERATION: Ultrasound guided left thoracentesis fluid nodule biopsy PRE-OP DIAGNOSIS: Left thyroid nodule TISSUE SUBMITTED: A- Left thyroid nodule DIAGNOSIS CYTOLOGY A. Left thyroid nodule, FNA (cytospin, smear x4): * Atypical cells of undetermined significance (TBS III). * Afirma testing will be submitted. CYTOLOGY STUDY Slides are reviewed. CYTOLOGY GROSS A. Received is 30 ml of [id number] cytolyt particles and 4 smears labeled with the patient's name and and designated per the requisition as Left thyroid nodule. Submitted for cytology and cytospin. 11/05/2024 CPT: 47190 ADDENDUM ADDENDUM ADDENDUM ADDENDUM ADDENDUM ADDENDUM ADDENDUM ADDENDUM ADDENDUM ADDENDUM 12/01/2024 09:47 ADDENDUM 12/01/2024 09:47 ADDENDUM 12/01/2024 09:47 ADDENDUM 12/01/2024 09:47 ADDENDUM 12/01/2024 09:47 AFIRMA RESULTS REPORT - SAMPLE A RESULTS INTERPRETATION: The result of this 1.5 cm [place] III nodule A is Afirma GSC benign, which suggests a low risk of cancer of approximately 4%. Treatment like a cytologically benign nodule may be appropriate, including clinical correlation. Afirma XA is not performed on [facility] Benign nodules. TERT promoter region analysis is not performed on [facility] Benign nodules. Please see complete report in e-chart or EMR
[2024-11-05] MEDS: Lidocaine 2% (20 ml mdv) 20 ML Vial INFILT (13:33)
--- NOTE | 2024-11-05 14:47 | OP.PCM_ITS ---
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 Superficially, the skin was cleaned with a chlorhexidine swab and a wheal of local anesthetic was created by instilling 9 ml 2% lidocaine. Then, under ultrasound guidance, multiple passes were made into the left thyroid nodule starting with a 22-gauge needle. Once an adequate specimen was detected within the hub of the needle, this was handed off the field. 2nd and 3rd passes were also made with 3 cm long 22-gauge needles. Any excess material was placed in our [facility] collection canister and CytoLyt solution. In the name of trying to mitigate her risk for a nondiagnostic specimen, 4th and 5th passes with 2 additional 22-gauge needles were made for both cytopathology and for submission for genomic testing should patient have an atypical cytopathology result. External pressure was applied to the neck to assist with hemostasis. A quick examination was made with ultrasound to exclude any evidence of hematoma formation. Then the surface of the neck was cleaned, dried, and a bandage was applied. Patient was gradually returned to the sitting position and after short period of monitoring was dismissed. Wound care instructions and expectations regarding pathologic processing were discussed prior to dismissal. Complications: None Estimated blood loss: 1 ml Surgical Findings: Deeply and inferiorly located left thyroid nodule Complications Complications: No Admit VTE Documentation VTE Present on Admission: No
--- OUTSIDE RECORDS SUMMARY | 2024-11-05 20:15 | XMS RPT_ITS | CCD ---
Author Organization [facility] Care Team Providers Care Water Quality Specialist Name Role Phone Celestine Lyons MD Unavailable Nguyen Pearl PA-C Unavailable DARRYL RAMIREZ Unavailable Unavailable Dr. Jason Collins DO Primary Care Provider Dr. Jason Collins DO Attending Provider Dr. Jason Collins DO Referring Provider Dr. Adán Osborne MD Attending Provider Jason Collins Primary Care Unavailable Jason Collins Attending Unavailable Jason Collins Primary Care Unavailable Jason Collins Attending Unavailable Jason Collins Referring Unavailable Jason Collins Primary Care Unavailable Adán Osborne Attending Unavailable Adán Osborne Referring Unavailable Jason Collins Primary Care Unavailable Jason Collins Referring Unavailable Adán Osborne Attending Unavailable Medications Current Medications Medication Drug Class(es) Dates Sig (Normalized) Sig (Original) lisinopril 10 mg oral tablet (7 sources) Angiotensin Converting Enzyme Inhibitor Start: 03-08-2015 take 1 tablet by mouth once daily Lisinopril 10 MG tablet Active 10 mg PO DAILY March 08, 2015 1:00am simvastatin 20 mg oral tablet (7 sources) HMG-CoA Reductase Inhibitor Start: 03-08-2015 take 1 tablet by mouth at bedtime Simvastatin 20 MG tablet Active 20 mg PO AT BEDTIME March 08, 2015 1:00am Completed/Discontinued Medications Medication Drug Class(es) Dates Sig (Normalized) Sig (Original) aspirin 81 mg oral tablet (2 sources) Nonsteroidal Anti-inflammatory Drug take 1 tablet by mouth once daily ASPIRIN 81 MG TABS One tablet by mouth daily ASPIRIN [id number] Brendan Escalera Problems Active Problems Problem Classification Problem Date Documented Da te Episodic/Chronic Other and unspecified benign neoplasm (5 sources) Adenoma of large intestine; Translations: [Benign neoplasm of colon, unspecified] 02-23-2017 Episodic Other screening for suspected conditions (not mental disorders or infectious disease) (5 sources) Patient encounter status; Translations: [Encounter for screening for malignant neoplasm of colon] 02-23-2017 Episodic Thyroid disorders (2 sources) Thyroid nodule; Translations: [Nontoxic single thyroid nodule] Onset: 10-09-2024 10-30-2024 Chronic Unclassified (1 source) Unknown / UNK(Unknown) Onset: 01-22-2017 Past or Other Problems Problem Classification Problem Date Documented Da te Episodic/Chronic Gastrointestinal hemorrhage (2 sources) Hemorrhage of rectum and anus; Translations: [Hemorrhage of anus and rectum] Onset: 02-08-2015 02-09-2015 Episodic Other and unspecified benign neoplasm (2 sources) History of polyp of colon; Translations: [Personal history of colonic polyps] Onset: 01-16-2017 01-16-2017 Episodic Results Test Name Value Interpretation Reference Range Facility Surgery Visit Reporton 10-30 Surgery Visit Report [facility] [address] [place] [address] OFFICE VISIT Date of Service: 10/30/24 MR#: [id number] Acct: [id number] Name: SAQIB GONSALES Rep #: [id number] : 1965 Provider: Dr. Adán malik MD Age/Sex: 59/M Location: [facility] Status: Signed Intake Vital Signs 10/30/24 08:01 Height 5 ft 8 in Weight: 263 lb 6 oz BMI 40.0 BP 144/98 H Blood Pressure Location Rt brachial Position Sitting Respiration 18 Pulse 102 H Pulse Source Monitor Temp 97.6 F L Temp Source Temporal Pulse Oximetry (%) 99 Oxygen Delivery Method room air Intake Visit Reasons: THYROID NODULE Chief Complaint: thyroid nodule Is patient in pain?: No Allergies No Known Allergies Allergy (Verified 10/30/24 08:02) Medications ???Medication ???Instructions ???Recorded ???Confirmed ???Type lisinopril 10 mg tablet 10 mg PO DAILY 03/08/15 10/30/24 H istory simvastatin 20 mg tablet 20 mg PO QHS 03/08/15 10/30/24 His tory [facility] Medical History (Updated 10/30/24 @ 09:[address] Adán Osborne MD) Thyroid nodule Hyperlipidemia HTN (hypertension) Surgical History History of tonsillectomy History of arthroscopic knee surgery Family History Mother Breast cancer Grandmother Colon cancer Social History Smoking Status: Former smoker alcohol intake: never substance use type: does not use what type of physical activity do you participate in: none seatbelt use: always HPI HPI HPI: Patient is a 59-year-old male who presents for evaluation of thyroid nodules. They are referred for surgical consultation from Dr. Collins. This was discovered approximately 78 years ago during routine physical exam with patient's primary care provider. He states at 1 point he underwent biopsy of a nodule (patient unsure of which side) approximately [address] Cardozo. He recalls this being a benign result and undergoing periodic surveillance thyroid ultrasounds. They do not experience difficulty with swallowing. They do not complain of a new cough. They do not appreciate new voice changes. They do not have a history of snoring/sleep apnea. Additionally, their weight has been stable and they did not have a history of weight gain/loss. There is no history of recent fatigue. They do not have a history of heat or cold intolerance. Other symptoms include: Pertinent negatives: Denial of palpitation, denial of anxiety, denial of constipation or diarrhea, denial of any unusual swelling. They do not have a family history of thyroid disorders or endocrinopathies. There is no history of prior radiation exposure. Previous work-up has included thyroid ultrasound. This study was performed on 10/02/2024 and showed a right thyroid lobe measuring 5.6 x 2.4 x 3.1 cm. No nodules were identified in the right thyroid lobe. The left thyroid lobe measured 6.2 x 2.8 x 2.9 cm. Within this lobe radiology identified a nodule measuring 0.9 cm in greatest dimension in the mid polar region and rated TI-RADS 3. A second nodule was located in the posterior inferior pole measuring 1.5 cm in greatest dimension and was rated TI-RADS 4. Radiology commented that both nodules appeared stable and further went on to detail that the larger nodule appeared to be visualized on prior study performed November 03, 2020. An FNA has not been performed. Other tests include: TSH: 0.432, free T4: 1.1 (09/19/2024) ROS General General: No weight change, appetite, fatigue, colon cancer, breast cancer or weakness HEENT HEENT: No difficulty swallowing, eye injury, eye surgery, swollen glands or hoarseness Endo Endocrine: No thyroid disease, diabetes mellitus, thyroid cancer, Hair loss, heat intolerance or cold intolerance Skin Skin: No rash or changing moles Musc Musculoskeletal: No back problems, arthritis, rheumatoid arthritis, gout or joint pain Cardio Cardiovascular: No murmur, pacemaker, heart disease, atrial fibrillation, high blood pressure, heart attack, heart stent, palpitations, shortness of breath with exertion or chest pain Psych Psychiatric: No depression, anxiety or hearing voices Resp Respiratory: No shortness of breath, No sleep apnea, No cough, No COPD, No asthma, No emphysema and No wheezing Gastro Gastrointestinal: No abdominal pain, No nausea or vomiting, No diarrhea, No constipation, No blood in stool, No acid reflux, No hemorrhoids, No ulcers, No gallbladder problem and No black,tarry stools Daniel Hematologic: No blood thinners, No blood disorders, No bleeding, No anemia and No blood clots Neuro Neurologic: No numbness, No tingling and No weakness (more content not included)... Normal [facility] Thyroidon 10-02-2024 Thyroid [facility] [address] [place], [place] [address] Thyroid MR#: [id number] Acct: [id number] Name: SAQIB GONSALES Rep #: [id number] : 1965 M 59 From: Ralf Velez MD PCP: Dr. Jason Collins DO Status: REG CLI Study: Thyroid Date of Exam: 10/02/24 Exam# [id number] Ordering Dr: Jason Collins DO PROCEDURE: THYROID 10/02/2024 REASON FOR EXAM: THYROMEGALY NODULES TECHNIQUE: THYROID COMPARISON: May 15, 2021, November 03, 2020 FINDINGS: Right thyroid lobe size: 5.6 x 2.4 x 3.1 cm Left thyroid lobe size: 6.2 x 2.8 x 2.9 cm Isthmus: 0.7 cm Background parenchymal echotexture is heterogeneous. Nodules: 1. Lobe: Left, Location: Midpole, Size: 0.9 cm, Stability: Stable Composition: Solid or almost completely solid (+2) Echogenicity: Hyper to Isoechoic (+1) Margin: Smooth (+0) Shape: Wider than tall (+0) Echogenic Foci: None (+0) TI-RADS: 3 2. Lobe: Left, Location: Posterior lower pole, Size: 1.5 cm, Stability: Unchanged when measured similarly (on prior image 53 and image 49 of November 03 exam). Composition: Solid or almost completely solid (+2) Echogenicity: Hypoechoic (+2) Margin: Ill-defined (+0) Shape: Wider than tall (+0) Echogenic Foci: None (+0) TI-RADS: 4 Incidental note is made of a left midpole colloid cyst measuring 5 mm. Benign. US/Thyroid IMPRESSION: 1. Thyroid enlargement. 2. Benign colloid cyst. 3. Solid nodules as above are stable. TR4: Moderately Suspicious: FNA if = 1.5 cm; Follow if = 1 cm at 1, 2, 3, and 5 y. Consider sampling the 15 mm left thyroid nodule. Reading Location: [id number] CC: Dr. Jason Collins, Access Clinician: Signed Normal [facility] Absolute lymphocyte countOrd ered By: Jason Collins on 09-19-2024 Lymphocytes Auto (Unsp spec) [#/Vol] 2.19 10*3/uL 0.83-4.51 [facility] Absolute neutrophil countOrd ered By: Jason Collins on 09-19-2024 Neutrophils (Bld) [#/Vol] 5.9 10*3/uL 2.0-7.7 [facility] Anion gap in Serum or Plasma Ordered By: Jason Collins on 09-19-2024 Anion gap [Moles/Vol] 12 mmol/L 5-15 [facility] Automated lymphocyte count a s percentage of total leukocytesOrdered By: Jason Collins on 09-19-2024 Lymphocytes/100 WBC Auto (Unsp spec) 23.6 % - [facility] BUN/creatinine ratioOrdered By: Jason Collins on 09-19-2024 Urea nitrogen/Creatinine [Mass ratio] 9.8 mg/mg Low 10- [facility] Basophil percentageOrdered B y: Jason Collins on 09-19-2024 Basophils/100 WBC (Bld) 1.0 % 0-1 [facility] Bilirubin, totalOrdered By: Jason Collins on 09-19-2024 Bilirubin [Mass/Vol] 0.36 mg/dL 0.00-1.30 [facility] CBC W/Diff, Automatedon 08-27 Absolute Lymph 2.19 X10 3/uL Normal 0.83-4.51 [facility] Comment on above: Performed By: #### L 100.0100, L501.9985, L500.4100, L501.9520, L500.4050, L506.0400, L501.9910 #### [facility] [address] [place], [address] Absolute Neut 5.9 X10 3/uL Normal 2.0-7.7 [facility] Comment on above: Performed By: #### L 100.0100, L501.9985, L500.4100, L501.9520, L500.4050, L506.0400, L501.9910 #### [facility] [address] [place], [address] Basophils/100 WBC (Bld) 1.0 % Normal 0-1 [facility] Comment on above: Performed By: #### L 100.0100, L501.9985, L500.4100, L501.9520, L500.4050, L506.0400, L501.9910 #### [facility] [address] [place], [address] Eosinophils/100 WBC (Bld) 2.7 % Normal 0-5 [facility] Comment on above: Performed By: #### L 100.0100, L501.9985, L500.4100, L501.9520, L500.4050, L506.0400, L501.9910 #### [facility] [address] [place], [address] Erythrocyte distribution width (RBC) [Ratio] 14.0 % Normal 11.6-14.6 [facility] Comment on above: Performed By: #### L 100.0100, L501.9985, L500.4100, L501.9520, L500.4050, L506.0400, L501.9910 #### [facility] [address] [place], [address] Hematocrit (Bld) [Volume fraction] 46.1 % Normal 40-54 [facility] Comment on above: Performed By: #### L 100.0100, L501.9985, L500.4100, L501.9520, L500.4050, L506.0400, L501.9910 #### [facility] [address] [place], [address] Hemoglobin (Bld) [Mass/Vol] 14.6 g/dL Normal 13.0-16.5 [facility] Comment on above: Performed By: #### L 100.0100, L501.9985, L500.4100, L501.9520, L500.4050, L506.0400, L501.9910 #### [facility] [address] [place], [address] IG% 0.400 Normal 0.0-0.9 [facility] Comment on above: Result Comment: IG% - Immature Granulocytes (promyelocytes, myelocytes and metamyelocytes) > 1% indicates that a LEFT SHIFT is Present. Performed By: #### L 100.0100, L501.9985, L500.4100, L501.9520, L500.4050, L506.0400, L501.9910 #### [facility] [address] [place], [address] Lymphocytes/100 WBC (Bld) 23.6 % Normal 19-41 [facility] Comment on above: Performed By: #### L 100.0100, L501.9985, L500.4100, L501.9520, L500.4050, L506.0400, L501.9910 #### [facility] [address] [place], [address] MCH (RBC) [Entitic mass] 27.9 pg Normal 27.0-32.0 [facility] Comment on above: Performed By: #### L 100.0100, L501.9985, L500.4100, L501.9520, L500.4050, L506.0400, L501.9910 #### [facility] [address] [place], [address] MCHC (RBC) [Mass/Vol] 31.7 g/dL Low 32-36 [facility] Comment on above: Performed By: #### L 100.0100, L501.9985, L500.4100, L501.9520, L500.4050, L506.0400, L501.9910 #### [facility] [address] [place], [address] MCV (RBC) [Entitic vol] 88.1 fL Normal 80-94 [facility] Comment on above: Performed By: #### L 100.0100, L501.9985, L500.4100, L501.9520, L500.4050, L506.0400, L501.9910 #### [facility] [address] [place], [address] Monocytes/100 WBC (Bld) 8.7 % Normal 0-10 [facility] Comment on above: Performed By: #### L 100.0100, L501.9985, L500.4100, L501.9520, L500.4050, L506.0400, L501.9910 #### [facility] [address] [place], [address] Neutrophils/100 WBC (Bld) 63.6 % Normal 47-70 [facility] Comment on above: Performed By: #### L 100.0100, L501.9985, L500.4100, L501.9520, L500.4050, L506.0400, L501.9910 #### [facility] [address] [place], [address] Nucleated RBC (Bld) [#/Vol] 0 10*3/uL Normal 0-5 [facility] Comment on above: Performed By: #### L 100.0100, L501.9985, L500.4100, L501.9520, L500.4050, L506.0400, L501.9910 #### [facility] [address] [place], [address] Platelet mean volume (Bld) [Entitic vol] 10.7 fL Normal 6.2-12.0 [facility] Comment on above: Performed By: #### L 100.0100, L501.9985, L500.4100, L501.9520, L500.4050, L506.0400, L501.9910 #### [facility] [address] [place], [address] Platelets (Bld) [#/Vol] 320 10*3/uL Normal 150-450 [facility] Comment on above: Performed By: #### L 100.0100, L501.9985, L500.4100, L501.9520, L500.4050, L506.0400, L501.9910 #### [facility] [address] [place], [place], [address] RBC (Bld) [#/Vol] 5.23 10*6/uL Normal 4.6-6.2 [facility] Comment on above: Performed By: #### L 100.0100, L501.9985, L500.4100, L501.9520, L500.4050, L506.0400, L501.9910 #### [facility] [address] [place], [address] ( RDW SD 44.5 fl High 35.1-43.9 [facility] Comment on above: Performed By: #### L 100.0100, L501.9985, L500.4100, L501.9520, L500.4050, L506.0400, L501.9910 #### [facility] [address] [place], [address] (611) WBC (Bld) [#/Vol] 9.3 10*3/uL Normal 4.4-11.0 [facility] Comment on above: Performed By: #### L 100.0100, L501.9985, L500.4100, L501.9520, L500.4050, L506.0400, L501.9910 #### [facility] [address] [place], [place], [id number] Calculated very low density lipoprotein (VLDL) cholesterol measurementOrdered By: Jason Collins on 09-19-2024 Calculated very low density lipoprotein (VLDL) cholesterol measurement 19 mg/dL 5-40 [facility] Carbon dioxide, total [Moles /volume] in Central venous bloodOrdered By: Jason Collins on 09-19-2024 CO2 [Moles/Vol] 21.6 mmol/L 21.0-32.0 [facility] Chloride assayOrdered By: Juan Daniel Collins on 09-19-2024 Chloride [Moles/Vol] 104 mmol/L 98-108 [facility] Comprehensive Metabolic Prof ilon 09-19-2024 Albumin [Mass/Vol] 4.0 g/dL Normal 3.5-5.0 [facility] Comment on above: Performed By: #### L 100.0100, L501.9985, L500.4100, L501.9520, L500.4050, L506.0400, L501.9910 #### [facility] [address] [place], [address] Albumin/Globulin [Mass ratio] 1.2 {ratio} Normal 0.9-2.4 [facility] Comment on above: Performed By: #### L 100.0100, L501.9985, L500.4100, L501.9520, L500.4050, L506.0400, L501.9910 #### [facility] [address] [place], [address] ALK PHOS 71 U/L Normal 40-129 [facility] Comment on above: Performed By: #### L 100.0100, L501.9985, L500.4100, L501.9520, L500.4050, L506.0400, L501.9910 #### [facility] [address] [place], [address] ALT [Catalytic activity/Vol] 31 U/L Normal <=46 [facility] Comment on above: Performed By: #### L 100.0100, L501.9985, L500.4100, L501.9520, L500.4050, L506.0400, L501.9910 #### [facility] [address] [place], [address] AST [Catalytic activity/Vol] 22 U/L Normal <=37 [facility] Comment on above: Performed By: #### L 100.0100, L501.9985, L500.4100, L501.9520, L500.4050, L506.0400, L501.9910 #### [facility] [address] [place], [address] Bilirubin [Mass/Vol] 0.36 mg/dL Normal 0.00-1.30 [facility] Comment on above: Performed By: #### L 100.0100, L501.9985, L500.4100, L501.9520, L500.4050, L506.0400, L501.9910 #### [facility] [address] [place], [address] BUN/CRE 9.8 RATIO Low 10-20 [facility] Comment on above: Performed By: #### L 100.0100, L501.9985, L500.4100, L501.9520, L500.4050, L506.0400, L501.9910 #### [facility] [address] [place], [address] Calcium [Mass/Vol] 9.7 mg/dL Normal 7.6-11.0 [facility] Comment on above: Performed By: #### L 100.0100, L501.9985, L500.4100, L501.9520, L500.4050, L506.0400, L501.9910 #### [facility] [address] [place], [address] Chloride [Moles/Vol] 104 mmol/L Normal 98-108 [facility] Comment on above: Performed By: #### L 100.0100, L501.9985, L500.4100, L501.9520, L500.4050, L506.0400, L501.9910 #### [facility] [address] [place], [address] CO2 [Moles/Vol] 21.6 mmol/L Normal 21.0-32.0 [facility] Comment on above: Performed By: #### L 100.0100, L501.9985, L500.4100, L501.9520, L500.4050, L506.0400, L501.9910 #### [facility] [address] [place], [address] Creatinine [Mass/Vol] 1.20 mg/dL Normal 0.70-1.20 [facility] Comment on above: Performed By: #### L 100.0100, L501.9985, L500.4100, L501.9520, L500.4050, L506.0400, L501.9910 #### [facility] [address] [place], [address] GAP 12 Normal 5-15 [facility] Comment on above: Performed By: #### L 100.0100, L501.9985, L500.4100, L501.9520, L500.4050, L506.0400, L501.9910 #### [facility] [address] [place], [address] GFR/1.73 sq M.predicted among non-blacks MDRD (S/P/Bld) [Vol rate/Area] 70 mL/min/{1.73_m2} Normal >60 [facility] Comment on above: Result Comment: mL/m in/1.73m2 CKD-EPI Creatinine Equation (2020) Performed By: #### L 100.0100, L501.9985, L500.4100, L501.9520, L500.4050, L506.0400, L501.9910 #### [facility] [address] [place], [address] Globulin (S) [Mass/Vol] 3.3 g/dL Normal 2.2-4.2 [facility] Comment on above: Performed By: #### L 100.0100, L501.9985, L500.4100, L501.9520, L500.4050, L506.0400, L501.9910 #### [facility] [address] [place], [address] Glucose [Mass/Vol] 102 mg/dL High 70-99 [facility] Comment on above: Performed By: #### L 100.0100, L501.9985, L500.4100, L501.9520, L500.4050, L506.0400, L501.9910 #### [facility] [address] [place], [address] Potassium [Moles/Vol] 4.2 mmol/L Normal 3.3-5.1 [facility] Comment on above: Performed By: #### L 100.0100, L501.9985, L500.4100, L501.9520, L500.4050, L506.0400, L501.9910 #### [facility] [address] [place], [address] Sodium [Moles/Vol] 137 mmol/L Normal 133-145 [facility] Comment on above: Performed By: #### L 100.0100, L501.9985, L500.4100, L501.9520, L500.4050, L506.0400, L501.9910 #### [facility] [address] [place], [address] T PROT 7.3 g/dL Normal 5.9-8.4 [facility] Comment on above: Performed By: #### L 100.0100, L501.9985, L500.4100, L501.9520, L500.4050, L506.0400, L501.9910 #### [facility] [address] [place], [address] Urea nitrogen [Mass/Vol] 12 mg/dL Normal 4-19 [facility] Comment on above: Performed By: #### L 100.0100, L501.9985, L500.4100, L501.9520, L500.4050, L506.0400, L501.9910 #### [facility] [address] [place], [address] Eosinophil percentageOrdered By: Jason Collins on 09-19-2024 Eosinophils/100 WBC (Bld) 2.7 % 0-5 [facility] Erythrocyte distribution wid th ratioOrdered By: Jason Karina on 09-19-2024 Erythrocyte distribution width (RBC) [Ratio] 14.0 % 11.6-14.6 [facility] Erythrocyte distribution wid th standard deviationOrdered By: Jason Collins on 09-19-2024 Erythrocyte distribution width (RBC) [Ratio] 44.5 fl High 35.1-43.9 [facility] Glomerular filtration rate ( GFR) estimation/1.73 sq m using serum, plasma, or whole bOrdered By: Jason Collins on 09-19-2024 GFR/1.73 sq M.predicted among non-blacks MDRD (S/P/Bld) [Vol rate/Area] 70 mL/min/{1.73_m2} >60 [facility] Comment on above: mL/min/1.73m2 CKD-EP I Creatinine Equation (2020) Hematocrit Auto (Bld) [Volum e fraction]Ordered By: Jason Collins on 09-19-2024 Hematocrit (Bld) [Volume fraction] 46.1 % 40-54 [facility] Hemoglobin A1con 09-19-2024 HbA1c (Bld) [Mass fraction] 5.9 % High <=5.6 [facility] Comment on above: Result Comment: Norm al < 5.7 % Prediabetic 5.7 - 6.4 % Diabetic >or= 6.5 % Please note range changes. Performed By: #### L 100.0100, L501.9985, L500.4100, L501.9520, L500.4050, L506.0400, L501.9910 #### [facility] [address] [place], [address] Hemoglobin A1c percentageOrd ered By: Jason Collins on 09-19-2024 HbA1c (Bld) [Mass fraction] 5.9 % High <5.7 [facility] Comment on above: Normal < 5.7 % Predi abetic 5.7 - 6.4 % Diabetic >or= 6.5 % Please note range changes. Hemoglobin measurementOrdere d By: Jason Collins on 09-19-2024 Hemoglobin (Bld) [Mass/Vol] 14.6 g/dL 13.0-16.5 [facility] Immature granulocytes/100 WB C Auto (Bld)Ordered By: Jason Collins on 09-19-2024 Immature granulocytes/100 WBC (Bld) 0.400 % 0.0-0.9 [facility] Comment on above: IG% - Immature Granu locytes (promyelocytes, myelocytes and metamyelocytes) > 1% indicates that a LEFT SHIFT is Present. LDL calc ser/plasOrdered By: Jason Collins on 09-19-2024 Cholesterol in LDL [Mass/Vol] 109 mg/dL [facility] Comment on above: Blcqvaytba=677-094 m g/dL & Higher Vokr=295 mg/dL or greater Laboratory - Chemistry and C hemistry - challengeOrdered By: Jason Collins on 09-19-2024 AST [Catalytic activity/Vol] 22 U/L <38 [facility] Lipid Profileon 09-19-2024 CHOL:HDL 4.06 Normal [facility] Comment on above: Performed By: #### L 100.0100, L501.9985, L500.4100, L501.9520, L500.4050, L506.0400, L501.9910 #### [facility] Laboratory [address] [place], [address] Cholesterol [Mass/Vol] 170 mg/dL Normal <=200 [facility] Comment on above: Result Comment: Chol esterol level, Desirable <200 mg/dL Borderline high cholesterol 200-239 mg/dL High cholesterol >=240 mg/dL Recommendations of the NCEP Adult Treatment Panel for the following risk-cutoff thresholds for the [place] population. Performed By: #### L 100.0100, L501.9985, L500.4100, L501.9520, L500.4050, L506.0400, L501.9910 #### [facility] [address] [place], [address] Cholesterol in HDL [Mass/Vol] 42 mg/dL Normal [facility] Comment on above: Result Comment: Radha onal Cholesterol Education Program (NCEP) guidelines: <40 mg/dL: Low HDL-cholesterol (major risk factor for CHD) >= 60 mg/dL: High HDL-cholesterol (negative risk factor for CHD) HDL-cholesterol is affected by a number of factors, e.g. smoking, exercise, hormones, sex and age. Performed By: #### L 100.0100, L501.9985, L500.4100, L501.9520, L500.4050, L506.0400, L501.9910 #### [facility] [address] [place], [address] Cholesterol in LDL [Mass/Vol] 109 mg/dL Normal [facility] Comment on above: Result Comment: Bord wckwid=510-525 mg/dL Higher Ecfa=558 mg/dL or greater Performed By: #### L 100.0100, L501.9985, L500.4100, L501.9520, L500.4050, L506.0400, L501.9910 #### [facility] [address] [place], [address] Cholesterol in VLDL [Mass/Vol] 19 mg/dL Normal 5-40 [facility] Comment on above: Performed By: #### L 100.0100, L501.9985, L500.4100, L501.9520, L500.4050, L506.0400, L501.9910 #### [facility] [address] [place], [address] Triglyceride [Mass/Vol] 96 mg/dL Normal [facility] Comment on above: Result Comment: The drugs N-Acetylcysteine and Metamizole may falsely depress this assay. Normal range: <150 mg/dL Borderline High: 150-199 mg/dL High: 200-499 mg/dL Very High: >500 mg/dL Performed By: #### L 100.0100, L501.9985, L500.4100, L501.9520, L500.4050, L506.0400, L501.9910 #### [facility] [place], [address] MCV (mean corpuscular volume ) determinationOrdered By: Jason Collins on 09-19-2024 MCV (RBC) [Entitic vol] 88.1 fL 80-94 [facility] Mean corpuscular hemoglobin (MCH) determinationOrdered By: Jason Collins on 09-19-2024 MCH (RBC) [Entitic mass] 27.9 pg 27.0-32.0 [facility] Mean corpuscular hemoglobin concentration (MCHC) determinationOrdered By: Jason Collins on 09-19-2024 MCHC (RBC) [Mass/Vol] 31.7 g/dL Low 32-36 [facility] Mean platelet volume determi nationOrdered By: Jason Collins on 09-19-2024 Platelet mean volume (Bld) [Entitic vol] 10.7 fL 6.2-12.0 [facility] Monocyte percentageOrdered B y: Jason Collins on 09-19-2024 Monocytes/100 WBC (Bld) 8.7 % 0-10 [facility] Neutrophil percentageOrdered By: Jason Collins on 09-19-2024 Neutrophils/100 WBC (Bld) 63.6 % 47-70 [facility] Nucleated red blood cell per centageOrdered By: Jason Collins on 09-19-2024 Nucleated RBC/100 WBC (Bld) [Ratio] 0 % 0-5 [facility] PSA,Total - Annual Screenon 09-19-2024 PSA,TOT SCREEN 2.84 ng/mL Normal 0.02-4.00 [facility] Comment on above: Result Comment: This test was performed using the [employer] tPSA method. Measured values of a patient??sample can vary depending on the testing procedure used. PSA values determined on patient samples by different testing procedures cannot be used interchangeably. If there is a change in PSA assays while monitoring therapy, sequential testing should be performed to confirm baseline values. Performed By: #### L 100.0100, L501.9985, L500.4100, L501.9520, L500.4050, L506.0400, L501.9910 #### [facility] [place], [address] Platelet countOrdered By: Juan Daniel Collins on 09-19-2024 Platelets (Bld) [#/Vol] 320 10*3/uL 150-450 [facility] Potassium measurement (mass/ volume)Ordered By: Jason Collins on 09-19-2024 Potassium (Unsp spec) [Mass/Vol] 4.2 mmol/L 3.3-5.1 [facility] RBC Auto (Bld) [#/Vol]Ordere d By: Jason Collins on 09-19-2024 RBC (Bld) [#/Vol] 5.23 10*6/uL 4.6-6.2 [facility] Screening total cholesterol/ high density lipoprotein (HDL) cholesterol ratioOrdered By: Jason Collins on 09-19-2024 Cholesterol.total/Karen sterol in HDL [Mass ratio] 4.06 {ratio} [facility] Serum creatinine measurement (mass/volume)Ordered By: Jason Collins on 09-19-2024 Creatinine [Mass/Vol] 1.20 mg/dL 0.70-1.20 [facility] Serum globulin measurementOr dered By: Jason Collins on 09-19-2024 Globulin (S) [Mass/Vol] 3.3 g/dL 2.2-4.2 [facility] Serum glucose measurement (m ass/volume)Ordered By: Jason Collins on 09-19-2024 Glucose [Mass/Vol] 102 mg/dL High 70-99 [facility] Serum or plasma alanine bach otransferase (ALT) measurementOrdered By: Jason Collins on 09-19-2024 ALT [Catalytic activity/Vol] 31 U/L <47 [facility] Serum or plasma albumin stanton urement (mass/volume)Ordered By: Jason Collins on 09-19-2024 Albumin [Mass/Vol] 4.0 g/dL 3.5-5.0 [facility] Serum or plasma albumin/glob ulin mass ratioOrdered By: Jason Collins on 09-19-2024 Albumin/Globulin [Mass ratio] 1.2 {ratio} 0.9-2.4 [facility] Serum or plasma alkaline jordan sphatase measurementOrdered By: Jason Collins on 09-19-2024 ALP [Catalytic activity/Vol] 71 U/L 40-129 [facility] Serum or plasma calcium stanton urement (mass/volume)Ordered By: Jason Collins on 09-19-2024 Calcium [Mass/Vol] 9.7 mg/dL 7.6-11.0 [facility] Serum or plasma cholesterol in HDL measurement (mass/volume)Ordered By: Jason Collins on 09-19-2024 Cholesterol in HDL [Mass/Vol] 42 mg/dL >40 [facility] Comment on above: National Cholesterol Education Program (NCEP) guidelines:<40 mg/dL: Low HDL-cholesterol (major risk factor for CHD)>= 60 mg/dL: High HDL-cholesterol (negative risk factor for CHD)HDL-cholesterol is affected by a number of factors, e.g. smoking, exercise, hormones, sex and age. Serum or plasma cholesterol measurement (mass/volume)Ordered By: Jason Collins on 09-19-2024 Cholesterol [Mass/Vol] 170 mg/dL <201 [facility] Comment on above: Cholesterol level, D esirable <200 mg/dLBorderline high cholesterol 200-239 mg/dLHigh cholesterol >=240 mg/dLRecommendations of the NCEP Adult Treatment Panel for the following risk-cutoff thresholds for the [place] population. Serum or plasma urea nitroge n measurement (mass/volume)Ordered By: Jason Collins on 09-19-2024 Urea nitrogen [Mass/Vol] 12 mg/dL 4-19 [facility] Sodium levelOrdered By: Jason Collins on 09-19-2024 Sodium [Moles/Vol] 137 mmol/L 133-145 [facility] T4 Free Directon 09-19-2024 T4 FREE DIRECT 1.10 ng/dL Normal 0.76-1.46 [facility] Comment on above: Performed By: #### L 100.0100, L501.9985, L500.4100, L501.9520, L500.4050, L506.0400, L501.9910 #### [facility] [address] [place], [place], [id number] T4 freeOrdered By: Jason kaur on 09-19-2024 Free T4 [Mass/Vol] 1.10 ng/dL 0.76-1.46 [facility] TSH DL <= 0.005 mIU/L QnOrde red By: Jason Collins on 09-19-2024 TSH Qn 0.432 uIU/mL 0.300-4.200 [facility] Thyroid Stim Hormone (TSH)on 09-19-2024 TSH 0.432 uIU/mL Normal 0.300-4.200 [facility] Comment on above: Performed By: #### L 100.0100, L501.9985, L500.4100, L501.9520, L500.4050, L506.0400, L501.9910 #### [facility] [address] [place], [place], [id number] Total proteinOrdered By: Sheila Collins on 09-19-2024 Protein [Mass/Vol] 7.3 g/dL 5.9-8.4 [facility] Triglycerides measurementOrd ered By: Jason Collins on 09-19-2024 Triglyceride [Mass/Vol] 96 mg/dL <199 [facility] Comment on above: The drugs N-Acetylcy steine and Metamizole may falsely depress this assay. Normal range: <150 mg/dLBorderline High: 150-199 mg/dLHigh: 200-499 mg/dLVery High: >500 mg/dL White blood cell (WBC) count Ordered By: Jason Collins on 09-19-2024 WBC (Bld) [#/Vol] 9.3 10*3/uL 4.4-11.0 [facility] Absolute lymphocyte countOrd ered By: Jason Collins on 10-02-2022 Lymphocytes Auto (Unsp spec) [#/Vol] 1.94 10*3/uL 0.83-4.51 [facility] Basophil percentageOrdered B y: Jason Collins on 10-02-2022 Basophils/100 WBC (Bld) 0.7 % 0-1 [facility] Bilirubin [Mass/Vol] 0.50 mg/dL 0.20-1.00 [facility] Comment on above: For patients on eltr ombopag therapy, use of Dimension [place] TBIL is not recommended. Chloride [Moles/Vol] 108 mmol/L 98-107 [facility] Cholesterol [Mass/Vol] 164 mg/dL <200 [facility] Comment on above: <200 mg/dL Desirable 200-240 mg/dL Borderline >240 mg/dL High Risk Eosinophils/100 WBC (Bld) 2.5 % 0-5 [facility] Glucose [Mass/Vol] 102 mg/dL 74-106 [facility] Comment on above: Fasting Glucose resu lt from 100 to 125 mg/dL suggests IMPAIRED HOMEOSTASIS per A.D.A. criteria. Neutrophils (Bld) [#/Vol] 8.2 10*3/uL 2.0-7.7 [facility] Neutrophils/100 WBC (Bld) 72.0 % 47-70 [facility] Potassium [Moles/Vol] 4.3 mmol/L 3.5-5.1 [facility] Protein [Mass/Vol] 7.6 g/dL 6.4-8.2 [facility] Sodium [Moles/Vol] 138 mmol/L 136-145 [facility] Triglyceride [Mass/Vol] 118 mg/dL <199 [facility] Comment on above: The drugs N-Acetylcy steine and Metamizole may falsely depress this assay.Serum Triglycerides Reference Interval Normal <150 mg/dL Borderline high 150 - 199 mg/dL High 200 - 499 mg/dL Very High > or = 500 mg/dL WBC (Bld) [#/Vol] 11.4 10*3/uL 4.4-11.0 [facility] Bilirubin Test strip Ql (U)O rdered By: Jason Collins on 10-02-2022 Bilirubin Ql (U) Negative Negative [facility] Blood erythrocytes count (nu mber/volume)Ordered By: Jason Collins on 10-02-2022 RBC (Bld) [#/Vol] 5.29 10*6/uL 4.6-6.2 [facility] Blood hemoglobin measurement (mass/volume)Ordered By: Jason Collins on 10-02-2022 Hemoglobin (Bld) [Mass/Vol] 15.0 g/dL 13.0-16.5 [facility] Blood lymphocytes/100 leukoc ytesOrdered By: Jason Collins on 10-02-2022 Lymphocytes/100 WBC (Bld) 17.1 % 19-41 [facility] Blood monocytes/100 leukocyt esOrdered By: Jasno Collins on 10-02-2022 Monocytes/100 WBC (Bld) 7.3 % 0-10 [facility] Blood platelet mean volumeOr dered By: Jason Collins on 10-02-2022 Platelet mean volume (Bld) [Entitic vol] 10.5 fL 6.2-12.0 [facility] Determination of erythrocyte mean corpuscular volume (MCV)Ordered By: Jason Collins on 10-02-2022 MCV (RBC) [Entitic vol] 91.7 fL 80-94 [facility] Hematocrit Auto (Bld) [Volum e fraction]Ordered By: Jason Collins on 10-02-2022 Hematocrit (Bld) [Volume fraction] 48.5 % 40-54 [facility] Ketones Test strip Ql (U)Ord ered By: Jason Collins on 10-02-2022 Ketones Ql (U) Negative Negative [facility] Laboratory - Chemistry and C hemistry - challengeOrdered By: Jason Collins on 10-02-2022 ALP [Catalytic activity/Vol] 68 U/L 45-117 [facility] ALT [Catalytic activity/Vol] 37 U/L 16-61 [facility] CO2 [Moles/Vol] 26.0 mmol/L 21.0-32.0 [facility] Free T4 [Mass/Vol] 0.94 ng/dL 0.76-1.46 [facility] Globulin (S) [Mass/Vol] 4.1 g/dL 2.2-4.2 [facility] Urea nitrogen/Creatinine [Mass ratio] 10.3 mg/mg 10-20 [facility] Laboratory - Hematology and Cell countsOrdered By: Jason Collins on 10-02-2022 Erythrocyte distribution width (RBC) [Entitic vol] 46.5 fL 35.1-43.9 [facility] Erythrocyte distribution width (RBC) [Ratio] 13.7 % 11.6-14.6 [facility] Immature granulocytes/100 WBC (Bld) 0.400 % 0.0-0.9 [facility] Comment on above: IG% - Immature Granu locytes (promyelocytes, myelocytes and metamyelocytes) > 1% indicates that a LEFT SHIFT is Present. MCH (RBC) [Entitic mass] 28.4 pg 27.0-32.0 [facility] Nucleated RBC/100 WBC (Bld) [Ratio] 0 % 0-5 [facility] MCHC Auto (RBC) [Mass/Vol]Or dered By: Jason Collins on 10-02-2022 MCHC (RBC) [Mass/Vol] 30.9 g/dL 32-36 [facility] Nitrite Test strip Ql (U)Ord ered By: Jason Collins on 10-02-2022 Nitrite Ql (U) Negative Negative [facility] No Panel InformationOrdered By: Jason Collins on 10-02-2022 Estimated GFR (MDRD) Amer 83 mL/min >60 [facility] Comment on above: GFR Calc Estimated GFR (MDRD) Non-Af Amer 68 mL/min >60 [facility] Comment on above: Non- GFR Calc Thyroid Stimulating Hormone (TSH) 0.40 uIU/mL 0.358-3.74 [facility] Platelets bldOrdered By: Sheila Collins on 10-02-2022 Platelets (Bld) [#/Vol] 349 10*3/uL 150-450 [facility] Protein Test strip Ql (U)Ord ered By: Jason Collins on 10-02-2022 Protein Ql (U) 15 mg/dl Negative [facility] Serum or plasma albumin stanton urement (mass/volume)Ordered By: Jason Collins on 10-02-2022 Albumin [Mass/Vol] 3.5 g/dL 3.2-5.0 [facility] Serum or plasma albumin/glob ulin mass ratioOrdered By: Jason Collins on 10-02-2022 Albumin/Globulin [Mass ratio] 0.9 {ratio} 0.9-2.4 [facility] Serum or plasma calcium stanton urement (mass/volume)Ordered By: Jason Collins on 10-02-2022 Calcium [Mass/Vol] 9.4 mg/dL 8.5-10.1 [facility] Serum or plasma cholesterol in HDL measurement (mass/volume)Ordered By: Jason Collins on 10-02-2022 Cholesterol in HDL [Mass/Vol] 40 mg/dL >40 [facility] Comment on above: The drugs N-Acetylcy steine and Metamizole may falsely depress this assay. Reference Range HDL <40 mg/dL Low HDL Cholesterol HDL >or= 60 mg/dL High HDL Cholesterol Serum or plasma cholesterol in VLDL measurement (mass/volume)Ordered By: Jason Collins on 10-02-2022 Cholesterol in VLDL [Mass/Vol] 24 mg/dL 5-40 [facility] Serum or plasma creatinine m easurement (mass/volume)Ordered By: Jason Collins on 10-02-2022 Creatinine [Mass/Vol] 1.17 mg/dL 0.70-1.30 [facility] Comment on above: The validity of the calculated GFR & GFRAA in patients over 70 years has not been determined. Clinical correlation is essential. Serum or plasma low density lipoprotein (LDL) cholesterol measurement (mass/volume)Ordered By: Jason Collins on 10-02-2022 Cholesterol in LDL [Mass/Vol] 100 mg/dL 0-130 [facility] Serum or plasma urea nitroge n measurement (mass/volume)Ordered By: Jason Collins on 10-02-2022 Urea nitrogen [Mass/Vol] 12 mg/dL 7-18 [facility] Thin prep Papanicolaou smear with manual screeningOrdered By: Jason Collins on 10-02-2022 Thin prep Papanicolaou smear with manual screening 19 U/L 15-37 [facility] Thin prep Papanicolaou smear with manual screening 4 5-15 [facility] Urine blood detectionOrdered By: Jason Collins on 10-02-2022 RBC Ql (U) 10 /ul Negative [facility] Urine clarityOrdered By: Sheila Collins on 10-02-2022 Clarity (U) Clear Clear [facility] Urine color determinationOrd ered By: Jason Collins on 10-02-2022 Color (U) Yellow Yellow [facility] Urine glucose detectionOrder ed By: Jason Collins on 10-02-2022 Glucose Ql (U) Normal mg/dl Normal [facility] Urine leukocyte esterase det ection by dipstickOrdered By: Jason Collins on 10-02-2022 Leukocyte esterase Test strip Ql (U) Negative Negative [facility] Urine pHOrdered By: Jason davis on 10-02-2022 pH (U) 6.0 [pH] 5.0 - 8.0 [facility] Urine specific gravity measu rementOrdered By: Jason Collins on 10-02-2022 Specific gravity (U) [Rel density] 1.020 1.002-1.030 [facility] Urobilinogen Auto test strip Ql (U)Ordered By: Jason Collins on 10-02-2022 Urobilinogen Ql (U) Normal mg/dl Normal [facility] Whole blood hemoglobin A1c/t otal hemoglobin ratio (mass fraction)Ordered By: Jason Collins on 10-02-2022 HbA1c (Bld) [Mass fraction] 5.7 % 3.8-5.6 [facility] Comment on above: Normal < 5.7 % Predi abetic 5.7 - 6.4 % Diabetic >or= 6.5 % Please note range changes. PROGRESSon 01-22-2017 PROGRESS HNO ID: [id number]: Anel Hobson TechService: (none)Author Type: (none)Type: Progress NotesFiled: 01/22/2017 7:47 AMNote Text: Radiology Service Progress NotePATIENT NAME: Saqib CarrizalessMRN: [id number] OF SERVICE: January 22, 2017TIME: 7:02 AMPATIENT IDENTITY VERIFICATION COMPLETED USING TWO (2) METHODS: Patientconfirmed name verbally and Date of .PATIENT GENDER DATA: MalePATIENT RELEVANT IMPLANT DATA REVIEWED: YesRADIOLOGY DEPARTMENT: UltrasoundPERIPHERAL IV DATA: Not applicableSIGNED BY: Anel Hobson TechNsanjeev 2016 7:02 AM Normal [facility] US THYROIDon 01-22-2017 US THYROID * * *Final Report* * *DATE OF EXAM: Jan 22 2017 7:46AM [id number] - US THYROID / REASON: thyriod * * * * Physician Interpretation * * * * Ultrasound of the thyroid glandHistory: Thyroid nodulesFindings:Right lobe: The dimensions of the lobe are 5.6 x 2.6 x 2.7 cm. Mild to moderate heterogeneity. There are several small nodules less than or equal to 6 mm in diameterLeft lobe: The dimensions of the lobe are 5.7 x 2.2 x 2.4 cm. There are several small nodules. Largest lateral inferior LEFT lobe 9 x 11 x 14 mm. Generalized mild to moderate heterogeneity.Isthmus: unremarkableImages were stored in a permanent archive.IMPRESSION:Hete rogeneous mildly enlarged thyroid with small nodules. Pattern similar to previous study.Access Clinician: BETZAIDA Transcribe Date/Time: Jan 24 2017 8:38ADictated by : JASON YOU MDThis examination was interpreted and the report reviewed and electronically signed by: JASON YOU MD on Jan 24 2017 8:44AM EST Normal [facility] Office Visiton 02-08-2015 Documentation of current medications (procedure) Done Invalid Interpretation Code [facility] Work Phone: Tobacco smoking status NHIS Tobacco smoking status NHIS Invalid Interpretation Code [facility] Work Phone: Tobacco use [facility] Never smoker Invalid Interpretation Code [facility] Work Phone: Vital Signs Date Time Vital Sign Value Performing Clinician Facility 10-30-2024 08:01-0400 Body height 172.[address] Jason Collins DO Work Phone: [facility] 10-30-2024 08:01-0400 Body mass index (BMI) [Ratio] 40 kg/m2 Dr. Jason Collins DO Work Phone: [facility] 10-30-2024 08:01-0400 Body temperature 97.6 [degF] Dr. Jason Collins DO Work Phone: [facility] 10-30-2024 08:01-0400 Body weight 119.[address] Jason Collins DO Work Phone: [facility] 10-30-2024 08:01-0400 Diastolic blood pressure 98 mm[Hg] Dr. Jason Collins DO Work Phone: [facility] 10-30-2024 08:01-0400 Heart rate 102 /min Dr. Jason Collins DO Work Phone: [facility] 10-30-2024 08:01-0400 Respiratory rate 18 /min Dr. Jason Collins DO Work Phone: [facility] 10-30-2024 08:01-0400 SaO2% (BldA) [Mass fraction] 99 % Dr. Jason Collins DO Work Phone: [facility] 10-30-2024 08:01-0400 Systolic blood pressure 144 mm[Hg] Dr. Jason Collins DO Work Phone: [facility] 02-08-2015 13:13-0500 BMI (Body Mass Index) 39.49 kg/m2 Nguyen Pearl PA-C [facility] Work Phone: 02-08-2015 13:13-0500 Body Temperature 97.3 [degF] Nguyen Pearl PA-C [facility] Work Phone: 02-08-2015 13:13-0500 BP Diastolic 76 mm[Hg] Nguyen Pearl PA-C [facility] Work Phone: 02-08-2015 13:13-0500 BP Systolic 115 mm[Hg] Nguyen Pearl PA-C [facility] Work Phone: 02-08-2015 13:13-0500 BSA (Body Surface Area) 2.16 m2 Nguyen Pearl PA-C [facility] Work Phone: 02-08-2015 13:13-0500 Height 166.37 cm Nguyen Pearl PA-C [facility] Work Phone: 02-08-2015 13:13-0500 Pulse (Heart Rate) 82 /min Nguyen Pearl PA-C [facility] Work Phone: 02-08-2015 13:130500 Respiratory Rate 16 /min Nguyen Pearl PA-C [facility] Work Phone: 02-08-2015 [id number] Weight 109.32 kg Nguyen Pearl PA-C [facility] Work Phone: Encounters Encounter Date Encounter Type Care Provider Facility Start: 11-05-2024 ambulatory [facility] Facility: [facility] Start: 10-30-2024 End: 10-30-[address] Jason Collins DO Work Phone: -[facility] Start: 10-30-2024 End: 10-30-[address] Adán Osborne MD -[facility] Work Phone: Start: 10-02-2024 End: 10-02-[address] Jason Collins DO Work Phone: -Ultrasound [facility] Start: 10-02-2024 End: 10-02-[address] Jason Collins DO -Ultrasound [facility] Work Phone: Start: 10-02-2024 End: 10-02-2024 ambulatory Jason Karina Facility:[facility] Start: 09-23-2024 Encounter for genera l adult medical examination without abnormal findings [facility] Start: 09-19-2024 End: 09-19-[address] Jason Collins DO Work Phone: -[facility] Start: 09-19-2024 End: 09-19-[address] Jason Collins DO -[facility] Start: 09-19-2024 End: [facility] Start: 10-02-2022 End: 10-02-2022 ambulatory [facility] Work Phone: Start: 10-02-2022 End: 10-02-2022 Patient encounter procedure [facility]-Laboratory, [facility] Start: 05-23-2021 End: 05-23-2021 Patient encounter procedure [facility]-Ultrasound, [facility] Start: 01-22-2017 End: 01-22-2017 [facility] Date Procedure Procedure Detail Performing Clinician Start: 10-02-2024 US scan of thyroid Dr. Jason Collins DO Work Phone: Start: 09-19-2024 Prostate specific an tigen measurement Dr. Jason Collins DO Work Phone: Comment on above: This test was perfor med using the [employer] tPSA method. Measured values of a patient sample can vary depending on the testing procedure used. PSA values determined on patient samples by different testing procedures cannot be used interchangeably. If there is a change in PSA assays while monitoring therapy, sequential testing should be performed to confirm baseline values. Start: 05-23-2021 US scan of thyroid Plan of Treatment Date Care Activity Detail Author Start: 02-23-2017 End: 02-23-2017 Appointment Appointment [facility] Work Phone: Start: 01-16-2017 End: 01-16-2017 Colonoscopy flx dx w/collj spec when pfrmd Colonoscopy [facility] [employer] Work Phone: Start: 02-08-2015 End: 02-10-2015 Colonoscopy flx dx w/collj spec when pfrmd Colonoscopy [facility] Work Phone: Payers Date Payer Category Payer Self-pay [id number] 2024 Unknown [id number] 2024 Unknown [id number] Private Health Insurance [id number] Unknown . [id number] Unknown [id number] [id number] [id number] Unknown [id number] [id number] [id number] Unknown [id number] [id number] [id number] Unknown [id number] [id number] [id number] Social History Date Type Detail Facility Start: 02-24-2020 Tobacco smoking stat [facility] Unknown if ever smoked [facility] Start: 02-24-2020 Chew [facility] Start: 1965 Sex Assigned At Male W [facility] Start: 02-24-2020 [facility] Radiology Diagnostic study note 10-07-2024 Note Date & Type Note Facility 10-07-2024 Radiology Diagnostic study note [facility] [address] [place], [place] [address] Thyroid MR#: [id number] Acct: [id number] Name: SAQIB GONSALES Rep #: [id number] : 1965 M 59 From: Ned Velez MD PCP: Dr. Jason Collins DO Status: REG CLI Study:Thyroid Date of Exam: 10/02/24 Exam# [id number] Ordering Dr: Jason Collins DO PROCEDURE: THYROID 10/02/2024 REASON FOR EXAM: THYROMEGALY NODULES TECHNIQUE: THYROID COMPARISON: May 15, 2021, November 03, 2020 FINDINGS: Right thyroid lobe size: 5.6 x 2.4 x 3.1 cm Left thyroid lobe size: 6.2 x 2.8 x 2.9 cm Isthmus: 0.7 cm Background parenchymal echotexture is heterogeneous. Nodules: 1. Lobe: Left, Location: Midpole, Size: 0.9 cm, Stability: Stable Composition: Solid or almost completely solid (+2) Echogenicity: Hyper to Isoechoic (+1) Margin: Smooth (+0) Shape: Wider than tall (+0) Echogenic Foci: None (+0) TI-RADS: 3 2. Lobe: Left, Location: Posterior lower pole, Size: 1.5 cm, Stability: Unchanged when measured similarly (on prior image 53 and image 49 of November 03 exam). Composition: Solid or almost completely solid (+2) Echogenicity: Hypoechoic (+2) Margin: Ill-defined (+0) Shape: Wider than tall (+0) Echogenic Foci: None (+0) TI-RADS: 4 Incidental note is made of a left midpole colloid cyst measuring 5 mm. Benign. US/Thyroid IMPRESSION: 1. Thyroid enlargement. 2. Benign colloid cyst. 3. Solid nodules as above are stable. TR4: Moderately Suspicious: FNA if = 1.5cm; Follow if = 1 cm at 1, 2, 3, and 5 y. Consider sampling the 15 mm left thyroid nodule. Reading Location: [id number] CC: Dr. Jason Collins, DO ~ Access Clinician: Signed [facility] Evaluation note Note Date & Type Note Facility Evaluation note No assessment information availa ble [facility] Work Phone: Reason for referral (narrative) Note Date & Type Note Facility Reason for referral (narrative) No reason for referral information available [facility] Work Phone: Summary Purpose Family History No Family History Records Found Relationship Condition Age at Onset Recorded Date/T noemi mother Malignant neoplasm of breast Unknown grandmother Malignant neoplasm of colon Unknown Advance Directives No Advanced Directives Records Found Advance Directive Response Recorded Date/ Time Living Will No February 23 020 2:44pm 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 Goals (unrecognized section and content) Goals may be documented in a n alternate sectionGoals may be documented in an alternate sectionGoals may be documented in an alternate sectionGoals may be documented in an alternate sectionGoals may be documented in an alternate section Care Teams (unrecognized sec tion and content) Team Status: Active Member Role Status Dates Dr. Darryl Ramirez MD Family Provider Active Dr. Jason Collins DO Primary Care Provider Active Team Status: Inactive Member Role Status Dates Dr. Jason Collins DO Primary Care Prov ider, Attending Provider, Referring Provider Active Team Status: Active Member Role/Relationship Status Dates Dr. Jason Collins DO Primary Care Provider Active Team Status: Inactive Member Role/Relationship Status Dates Dr. Jason Collins DO Primary Care Provider Active Start: September 19, 2024 End: September 19, 2024 Dr. Jason Collins DO Attending Provider Active Start: September 19, 2024 End: September 19, 2024 Team Status: Inactive Member Role/Relationship Status Dates Dr. Jason Collins DO Primary Care Provider Active Start: October 02, 2024 End: October 02, 2024 Dr. Jason Collins DO Attending Provider Active Start: October 02, 2024 End: October 02, 2024 Dr. Jason Collins DO Referring Provider Active Start: October 02, 2024 End: October 02, 2024 Team Status: Inactive Member Role/Relationship Status Dates Dr. Jason Collins DO Primary Care Provider Active Start: October 30, 2024 End: October 30, 2024 Dr. Jason Collins DO Referring Provider Active Start: October 30, 2024 End: October 30, 2024 Dr. Adán Osborne MD Attending Provider Active Start: October 30, 2024 End: October 30, 2024 FOR RECORDS PERTAINING TO PATIENTS WHO ARE OR HAVE BEEN ENROLLED IN A CHEMICAL DEPENDENCY/SUBSTANCEABUSE PROGRAM, SOME INFORMATION MAY BE OMITTED. This clinical summary was aggregated from multiple sources. Caution should be exercised in using it in the provision of clinical care. This summary normalizes information from multiple sources, and as a consequence, information in this document may materially change the coding, format and clinical context of patient data. In addition, data may be omitted in some cases. CLINICAL DECISIONS SHOULD BE BASED ON THE PRIMARY CLINICAL RECORDS. [employer] provides no warranty or guarantee of the accuracy or completeness of information in this document.
== END 2024-11-05 23:59 | disposition home or self-care (01) ==
LOC: US 12:45
PROVIDERS: PCP Family Medicine; Referring Provider Surgery; Visit Provider Surgery
DX: E04.1 Nontoxic single thyroid nodule (principal)
CPT/HCPCS: 10005; 88108; 88161; 88313